=== PATIENT | female | born 1980 | race Caucasian/White ===

== ENCOUNTER 2021-05-06 16:33 | Outpatient (CLI) | payer OTHER, SELFPAY ==
--- NOTE | ~2021-05-06 | MM_ITS ---
EXAMINATION: MM screening michelle BI w ariana HISTORY: Screening TECHNIQUE: Craniocaudal and mediolateral oblique 3-D tomosynthesis images were obtained and synthetic 2-D images were generated. CAD analysis was submitted and interpreted. COMPARISON: No prior mammogram is available for comparison at this institution. BREAST PARENCHYMAL COMPOSITION: There are scattered areas of fibroglandular density. FINDINGS: There is no evidence of suspicious mass, calcification, or architectural distortion to sugg est malignancy in either breast. There has been no suspicious interval change. IMPRESSION: 1. No mammographic evidence of malignancy. 2. Recommend routine screening mammography in one year. BI-RADS Category 1: Negative Reviewed, dictated and finalized at location A.
== END 2021-05-06 16:34 | disposition home or self-care (01) ==
PROVIDERS: PCP Family Medicine; Visit Provider Obstetrics & Gynecology Gynecology
DX: Z12.31 Encounter for screening mammogram for malignant neoplasm of breast (principal)
CPT/HCPCS: 77063; 77067

== ENCOUNTER 2022-01-01 07:17 | Outpatient (CLI) | payer OTHER, SELFPAY ==
--- NOTE | ~2022-01-01 | MR_ITS ---
EXAMINATION: MR brain/brain stem wo con DATE: 01/01/2022 08:03 INDICATION: Vertigo. Migraine without aura. Generalized headaches and dizziness. TECHNIQUE: Magnetic resonance imaging (MRI) of the brain and brainstem was performed without intraven ous contrast. Sequences included sagittal and axial T1-weighted FSE, axial diffusion-weighted FS EPI, axial T2*-weighted GRE, axial T2-weighted FLAIR Propeller, axial T2-weighted Propeller, small field- of-view coronal FIESTA, small oyfbq-[id number] coronal T1-weighted FSE, and small ufmal-fe-jzsh 3-D axia l T1-weighted SKINNER. Apparent diffusion coefficient (ADC) maps were created. COMPARISON: None. FINDINGS: There are no areas of restricted diffusion to suggest acute infarction. No intracranial hemorrhage or abnormal intracranial mass lesion. There are no intraparenchymal signal abnormalities seen on the ot her pulse sequences. The ventricles are symmetric and normal in size. There are no abnormal extra-axi al fluid collections. Normal seventh/eighth cranial nerve complexes. No cerebellopontine angles mass es. Small bilateral mastoid effusions. There is also small amount of more cephalad fluid on the left likely within the middle ear cavity. Flow voids are seen in the cerebral arteries on the T2-weighted sequences consistent with their expected patency. Mild mucosal thickening in the bilateral ethmoid an d maxillary sinuses. There is fluid/mucus completely filling the right sphenoid sinus. Visualized orb its and soft tissues are unremarkable. IMPRESSION: 1. Small left claudia mastoid and right mastoid effusions. 2. Normal brain. 3. Fluid/mucus completely filling the right sphenoid sinus. Reviewed, dictated and finalized at location A.
== END 2022-01-01 07:18 ==
PROVIDERS: PCP Family Medicine; Visit Provider Family Medicine
DX: J45.41 Moderate persistent asthma with (acute) exacerbation (principal); G43.009 Migraine without aura, not intractable, without status migrainosus; R42 Dizziness and giddiness; R90.89 Other abnormal findings on diagnostic imaging of central nervous system; R53.1 Weakness
CPT/HCPCS: 70551

== ENCOUNTER 2023-03-18 10:11 | Outpatient (CLI) | payer OTHER, SELFPAY ==
--- NOTE | ~2023-03-18 | MM_ITS ---
EXAMINATION: MM screening michelle BI w ariana HISTORY: Screening mammogram TECHNIQUE: Craniocaudal and mediolateral oblique 3-D tomosynthesis images were obtained and synthetic 2-D images were generated. CAD analysis was submitted and interpreted. COMPARISON: 05/06/2021 BREAST PARENCHYMAL COMPOSITION: The breasts are almost entirely fatty. FINDINGS: No suspicious mass, calcification, or architectural distortion are identified in either joce ast to suggest malignancy. There has been no suspicious interval change. IMPRESSION: 1. No mammographic evidence of malignancy. 2. Recommend routine screening mammography in one year. BI-RADS Category 1: Negative Reviewed, dictated and finalized at location A.
== END 2023-03-18 10:12 | disposition home or self-care (01) ==
PROVIDERS: PCP Family Medicine; Visit Provider Nurse Practitioner Family
DX: Z12.31 Encounter for screening mammogram for malignant neoplasm of breast (principal); E03.9 Hypothyroidism, unspecified; J45.41 Moderate persistent asthma with (acute) exacerbation; K21.9 Gastro-esophageal reflux disease without esophagitis; I10 Essential (primary) hypertension; G47.9 Sleep disorder, unspecified
CPT/HCPCS: 77063; 77067

== ENCOUNTER → 2023-05-05 10:52 | Outpatient (CLI) | payer OTHER, SELFPAY ==
--- NOTE | ~2023-05-05 | XR_ITS ---
XR shoulder LT min 2V 05/05/2023 11:27 INDICATION: Left upper arm pain PROCEDURE: 4 views left shoulder COMPARISON: No prior studies for comparison. FINDINGS: Fracture, dislocation or subluxation is not identified. The soft tissues appear within norm al limits. No foreign bodies are identified. IMPRESSION: 1: NO ACUTE BONE OR JOINT ABNORMALITY IDENTIFIED. Reviewed, dictated and finalized at location L.
== END ==
PROVIDERS: PCP Family Medicine
DX: M79.622 Pain in left upper arm (principal)
CPT/HCPCS: 73030